=== PATIENT | female | born 1980 | race Caucasian/White ===

== ENCOUNTER 2020-11-28 11:24 | Outpatient (CLI) | payer BC, MEDICAID, SELFPAY ==
--- NOTE | 2020-11-28 11:30 | MM_ITS ---
WS: [id number] SCREENING DIGITAL MAMMOGRAM WITH CAD HISTORY: SCREENING COMPARISON: None available. Bilateral CC and MLO views submitted. Computer aided detection analyzed. Breast composition: There are scattered areas of fibroglandular density. Seen along the RIGHT inframa mmary fold area of increased density which is probably superimposed soft tissues. This needs to be fu rther evaluated. Otherwise scattered benign calcifications. MM/[place] [id number] IMPRESSION: BI-RADS: 0-Incomplete: Need additional imaging evaluation FOLLOW UP: Need Additional Imaging RIGHT breast: Spot compression views (MLO). True ML. Ultrasound to follow if ab normality persists.
--- NOTE | 2020-11-28 12:42 | US_ITS ---
WS: [id number] RIGHT UPPER QUADRANT ULTRASOUND HISTORY: FATTY LIVER COMPARISON: None available. Liver: 19.8 cm in length. Moderate enlargement of the liver. No mass or bile duct dilatation. Mild ch anges of hepatic steatosis. Gallbladder: Normally distended gallbladder with no stones or wall thickening. CBD: 0.3 cm Pancreas: Poorly visualized. Right kidney: 12.4 cm in length. Normal size kidney. Minimal splitting of the RIGHT renal pelvis. May be due to small parapelvic cyst or pelviectasis. No calyceal dilatation. Aorta and IVC: Unremarkable abdominal aorta and IVC. No ascites. US/US abdomen limited [id number] IMPRESSION: 1. Mild hepatic steatosis and moderate hepatomegaly. 2. Normal gallbladder. 3. Minimal fluid in the RIGHT renal pelvis. Mild pelviectasis versus parapelvi c.
== END 2020-11-28 11:25 | disposition home or self-care (01) ==
LOC: RADSHAW 11:26
PROVIDERS: PCP Nurse Practitioner Family; Visit Provider Nurse Practitioner Family
DX: Z12.31 Encounter for screening mammogram for malignant neoplasm of breast (principal); K76.0 Fatty (change of) liver, not elsewhere classified
CPT/HCPCS: 76705; 77067

== ENCOUNTER 2021-01-13 07:28 | Outpatient (CLI) | payer BC, MEDICAID, SELFPAY ==
--- NOTE | 2021-01-13 07:33 | US_ITS ---
WS: [id number] Right breast ultrasound, 01/13/2021 Clinical Data: ABNORMAL MAMMOGRAM RT BREAST Comparison: Right breast mammogram, 01/13/2021 Findings: At the 6:00 position and 7:00 position in the right breast which would correspond to the inframammary fold there are no abnormalities. Only normal breast tissue seen. However 3 cm from the areola at the 9:00 position there is a probable fibroadenoma measuring 0.58 x 1.33 x 1.64 cm. It has a smooth bord er with fat and a mixed echotexture. US/US breast RT limited* [id number] Impression: 1. Negative for abnormality at the 6 or 7:00 position of the right breast which would correspond to the infra mammary fold. 2. Incidental fibroadenoma in the 9:00 position. BIRADS: 2-Benign FOLLOW UP: 1 Year Follow-up
--- NOTE | 2021-01-13 07:33 | MM_ITS ---
WS: [id number] Right breast diagnostic digital mammogram, 01/13/2021 Clinical Data: ABNORMAL MAMMOGRAM RT BREAST Comparison: 11/28/2020 Findings: The density in the inframammary fold is not present on the current examination. The remainder of the breasts shows no abnormalities. The breast parenchymal pattern shows fibroglandular tissue. No spicul ated masses or clustered calcifications are seen. MM/[place] [id number] Impression: 1. Negative for abnormality in the inferior aspect of the right breast. 2. Right breast ultrasound. BIRADS: 2-Benign FOLLOW UP: Need Additional Imaging The CAD metal checker was used.
== END 2021-01-13 07:29 | disposition home or self-care (01) ==
LOC: RADSHAW 07:31
PROVIDERS: PCP Nurse Practitioner Family; Visit Provider Nurse Practitioner Family
DX: R92.8 Other abnormal and inconclusive findings on diagnostic imaging of breast (principal)
CPT/HCPCS: 76642; 77065

== ENCOUNTER → 2021-04-10 13:35 | Outpatient (BNVA) | payer BC, MEDICAID, SELFPAY | PROVIDERS: PCP Nurse Practitioner Family; Visit Provider Internal Medicine | DX: E13.9 Other specified diabetes mellitus without complications (principal); E78.2 Mixed hyperlipidemia; E66.9 Obesity, unspecified; Z98.84 Bariatric surgery status; Z79.4 Long term (current) use of insulin; Z79.84 Long term (current) use of oral hypoglycemic drugs; Z68.36 Body mass index [BMI] 36.0-36.9, adult | CPT/HCPCS: 99204 ==

== ENCOUNTER 2021-04-17 10:32 | Outpatient (CLI) | payer BC, MEDICAID, SELFPAY ==
[2021-04-17 12:12] LABS: Estmated Average Glucose 186; Hemoglobin A1C 8.1 % (4.0-6.0)
[2021-04-17 12:16] LABS: Alanine Aminotransferase 19 U/L (0-33); Albumin Level 4.2 g/dL (3.5-5.2); Alkaline Phosphatase 87 IU/L (35-105); Blood Urea Nitrogen 11 mg/dL (6-20); Calcium 9.2 mg/dL (8.5-10.5); Carbon Dioxide 23 mmol/L (22-29); Chloride 101 mmol/L (98-107); Chol HDL Ratio 4.98 mg/dL (0.0-4.40); Cholesterol 209 mg/dL (0-200); Globulin 3.4 g/dL (1.3-4.6); Glucose 116 mg/dL (65-115); HDL Cholesterol 42 mg/dL (60-100); LDL Cholesterol Calculated 126 mg/dL (50-129); Osmolality Calculated 280 mOsm/kg (285-295); Sodium 135 mmol/L (136-145); Total Bilirubin 0.4 mg/dL (0.15-1.2); Total Protein 7.6 g/dL (6.6-8.7); Triglycerides 204 mg/dL (0-150)
[2021-04-17 12:19] LABS: Anion Gap 15.3 (5-19); Aspartate Amino Transferase 22 U/L (0-32); Potassium 4.3 mmol/L (3.5-5.1)
== END 2021-04-17 10:33 | disposition home or self-care (01) ==
PROVIDERS: Internal Medicine; PCP Nurse Practitioner Family; Visit Provider Nurse Practitioner Family
DX: E13.9 Other specified diabetes mellitus without complications (principal); E78.2 Mixed hyperlipidemia
CPT/HCPCS: 80053; 80061; 83036; 83519; 83525; 84681; 86337

== ENCOUNTER → 2021-04-24 14:15 | Outpatient (BNVA) | payer BC, MEDICAID, SELFPAY | PROVIDERS: PCP Nurse Practitioner Family; Visit Provider Internal Medicine | DX: E78.2 Mixed hyperlipidemia (principal); E10.65 Type 1 diabetes mellitus with hyperglycemia; T38.3X5A Adverse effect of insulin and oral hypoglycemic [antidiabetic] drugs, initial encounter; E66.9 Obesity, unspecified; Z98.84 Bariatric surgery status; Z79.4 Long term (current) use of insulin; Z79.84 Long term (current) use of oral hypoglycemic drugs; Z68.36 Body mass index [BMI] 36.0-36.9, adult | CPT/HCPCS: 99214 ==

== ENCOUNTER → 2021-07-11 10:51 | Outpatient (BNVA) | payer BC, MEDICAID, SELFPAY | PROVIDERS: PCP Nurse Practitioner Family; Visit Provider Internal Medicine | DX: E10.65 Type 1 diabetes mellitus with hyperglycemia (principal); E78.2 Mixed hyperlipidemia; E16.0 Drug-induced hypoglycemia without coma; T38.3X5A Adverse effect of insulin and oral hypoglycemic [antidiabetic] drugs, initial encounter; L65.9 Nonscarring hair loss, unspecified; L63.9 Alopecia areata, unspecified; E66.9 Obesity, unspecified; Z98.84 Bariatric surgery status; Z68.37 Body mass index [BMI] 37.0-37.9, adult; Z79.4 Long term (current) use of insulin | CPT/HCPCS: 99214 ==

== ENCOUNTER → 2021-08-09 09:35 | Outpatient (BNVA) | payer BC, MEDICAID, SELFPAY | PROVIDERS: PCP Nurse Practitioner Family; Visit Provider Anesthesiology Pain Medicine | DX: M19.011 Primary osteoarthritis, right shoulder (principal); M54.12 Radiculopathy, cervical region; M54.81 Occipital neuralgia; M79.601 Pain in right arm; M79.602 Pain in left arm | CPT/HCPCS: 72050; 73030; 99205 ==

== ENCOUNTER 2021-10-04 07:58 | Outpatient (CLI) | payer BC, MEDICAID, SELFPAY ==
--- NOTE | 2021-10-04 08:00 | MR_ITS ---
WS: [id number] MRI CERVICAL SPINE NONCONTRAST HISTORY: Chronic neck and RIGHT shoulder pain. Increasing over the last several months. COMPARISON: None available. Technique: Multiplanar, multisequence noncontrast imaging of the cervical spine. Normal posterior alignment. No fracture or marrow edema. Disc spaces are mildly narrowed. No fracture or marrow edema. Diffusely the central cervical canal is small. Craniocervical junction, C1 and C2 relationship, odontoid process and soft tissues are normal. C2-C3: Mild endplate hypertrophic osteophytosis. Very slight encroachment into the proximal foramina. No high-grade stenosis. C3-C4: Mild disc bulging with a central disc protrusion. Effacement of ventral CSF but no displacemen t of the cord. C4-C5: Mild osteophytic ridging and shallow central disc protrusion. Very mild foraminal encroachment into the foramina. No high-grade stenosis. C5-C6: Mild osteophytic ridging. Small central disc protrusion and mild facet arthritis. Effacement o f ventral CSF. Mild central stenosis. C6-C7: Mild annular disc bulging with a central small disc protrusion. Disc protrusion contacts the v entral cervical cord. Moderate central stenosis due to disc and osteophyte disease. Mild foraminal na rrowing. Mild facet joint arthritis. C7-T1: Normal. T1-T2: Central disc protrusion and osteophytosis. Mild disc encroachment upon the ventral thoracic co rd. Paraspinal soft tissue are normal. MR/MR cervical spin wo con* [id number] IMPRESSION: 1. 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 2. Small focal central disc protrusions and osteophytosis at C3-4, C4-5 and C5 -6. Only mild cervical stenosis. 3. Moderate central stenosis at C6-7 due to osteophyte disease and a small carlos manuel tral disc protrusion which contacts the cord. 4. Small central disc protrusion at T1-T2 contacts the ventral thoracic cord.
== END 2021-10-04 07:59 | disposition home or self-care (01) ==
PROVIDERS: PCP Nurse Practitioner Family; Visit Provider Anesthesiology Pain Medicine
DX: M54.12 Radiculopathy, cervical region (principal); M50.21 Other cervical disc displacement, high cervical region; M51.24 Other intervertebral disc displacement, thoracic region; M48.02 Spinal stenosis, cervical region; M25.78 Osteophyte, vertebrae
CPT/HCPCS: 72141

== ENCOUNTER → 2021-10-05 10:20 | Outpatient (BNVA) | payer BC, MEDICAID, SELFPAY | PROVIDERS: PCP Nurse Practitioner Family; Visit Provider Anesthesiology Pain Medicine | DX: M54.12 Radiculopathy, cervical region (principal); M54.81 Occipital neuralgia; M77.10 Lateral epicondylitis, unspecified elbow; M19.011 Primary osteoarthritis, right shoulder | CPT/HCPCS: 99214 ==

== ENCOUNTER → 2021-10-09 09:12 | Outpatient (BNVA) | payer BC, MEDICAID, SELFPAY | PROVIDERS: PCP Nurse Practitioner Family; Visit Provider Internal Medicine | DX: E10.65 Type 1 diabetes mellitus with hyperglycemia (principal); E10.649 Type 1 diabetes mellitus with hypoglycemia without coma; E78.2 Mixed hyperlipidemia; Z98.84 Bariatric surgery status; Z68.37 Body mass index [BMI] 37.0-37.9, adult; E66.9 Obesity, unspecified; E16.0 Drug-induced hypoglycemia without coma; T38.3X5A Adverse effect of insulin and oral hypoglycemic [antidiabetic] drugs, initial encounter; Z79.4 Long term (current) use of insulin; Z79.84 Long term (current) use of oral hypoglycemic drugs | CPT/HCPCS: 99214 ==

== ENCOUNTER 2021-11-24 12:16 | Outpatient (CLI) | payer BC, MEDICAID, SELFPAY ==
[2021-11-24 13:21] LABS: Basophils # 0.1 10^3/uL (0.0-0.1); Basophils % 0.8 %; Eosinophils # 0.3 10^3/uL (0.0-0.8); Eosinophils % 3.8 %; Hematocrit 38.1 % (37.0-47.0); Hemoglobin 12.8 g/dL (11.5-15.3); Lymphocytes # 1.9 10^3/uL (0.8-4.8); Lymphocytes % 28.6 %; Mean Corpuscular HGB Conc 33.6 g/dL (30.0-36.0); Mean Corpuscular Hemoglobin 30.5 pg (28.0-34.0); Mean Corpuscular Volume 90.9 fl (81-99); Mean Platelet Volume 9.4 fL (7.4-10.4); Monocytes # 0.3 10^3/uL (0.2-0.9); Monocytes % 4.3 %; Neutrophils # 4.07 10^3/uL (1.8-7.7); Neutrophils % 62.2 %; Nucleated Red Blood Cells % 0 %; Platelet Count 326 10^3/cmm (130-400); Red Blood Count 4.19 10^6/uL (4.1-5.3); Red Cell Distribution Width 12.5 % (12.1-15.1); White Blood Count 6.5 10^3/uL (4.0-10.0)
[2021-11-24 13:49] LABS: Ferritin 13 ng/mL (15-150); Iron 85 ug/dL (37-145); Percent Saturation 20.7 % (20-50); Total Iron Binding Capacity 410 mcg/dl; Unsaturated Iron Binding 325 ug/dL (112-347)
[2021-11-24 14:04] LABS: 25 Hydroxy Vitamin D 37 ng/mL (30-100)
[2021-11-24 14:14] LABS: Folate Level > 20.0 ng/mL (4.8-37.3)
[2021-11-24 14:21] LABS: Vitamin B12 > 2000 pg/mL (232-1245)
[2021-11-27 16:07] LABS: Zinc Level, Serum or Plasma 74 mcg/dL (60-130)
== END 2021-11-24 12:17 | disposition home or self-care (01) ==
LOC: LAB 12:23
PROVIDERS: PCP Nurse Practitioner Family; Referring Provider Internal Medicine; Visit Provider Nurse Practitioner Family
DX: L65.9 Nonscarring hair loss, unspecified (principal); R53.83 Other fatigue
CPT/HCPCS: 82306; 82607; 82728; 82746; 83540; 83550; 84630; 85025

== ENCOUNTER → 2021-12-05 09:38 | Outpatient (BNVA) | payer BC, MEDICAID, SELFPAY | PROVIDERS: PCP Nurse Practitioner Family; Visit Provider Orthopaedic Surgery | DX: M77.10 Lateral epicondylitis, unspecified elbow (principal) | CPT/HCPCS: 73080 ==

== ENCOUNTER 2022-01-09 14:39 | Emergency (ER) | payer BC, MEDICAID, SELFPAY ==
[2022-01-09 14:46] VITALS: BP 164/90; PULSE 77; RESP 24; TEMP 36.6; O2SAT 98
--- NOTE | 2022-01-09 15:07 | ED_ITS ---
HPI - Allergic Reaction General: Chief complaint: Allergic Reaction Stated complaint: Reaction to meds Time Seen by Provider: 01/09/22 15:03 Source: patient Mode of arrival: ambulatory History of Present Illness: HPI narrative: 41-year-old female comes into the emergency room after taking someone else's sumatriptan believe she probably took some between 25 or 50 mg UroFlush really lightheadedness dizziness tingling in her arms and feet after that with some nausea no difficulty breathing. She never had any rash had not previously taken any triptan's before. She usually just takes Tylenol or Motrin for migraines. She is diabetic. Symptoms have mostly resolved at this point she still does have a headache is exacerbated by any movement. MD complaint: other (Medication side effect) Onset (ago): minute(s) Associated symptoms: Reports dizziness and nausea; Deny abdominal pain, difficulty breathing, dysphagia, facial swelling, hoarseness, itching, lip swelling, rash or tongue swelling Treatment prior to arrival: none Review of Systems Const: Denies: fever(s), chills, body aches, change in appetite, fatigue or malaise ENMT: Denies: throat pain, hoarseness or swelling of lips/tongue Card: Denies: chest pain, palpitations, irregular heart rhythm, edema, dyspnea on exertion or orthopnea Resp: Denies: dyspnea, productive cough or non-productive cough GI: Reports: nausea; Denies: abdominal pain or dysphagia : Denies: flank pain, difficulty voiding, dysuria, urinary frequency or urinary urgency Skin/Breast: Denies: rash or pruritus Neuro: Reports: headache(s) and dizziness All/Imm: Denies: tongue swelling or facial swelling PFSH ED PFSH: Medical History Carpal tunnel syndrome on both sides delivery delivered Surgical History Gastric bypass status for obesity History of partial hysterectomy Family History Father Diabetes Stroke Multiple myeloma Kidney failure Hepatic sclerosis Mother Hypertension COPD (chronic obstructive pulmonary disease) Heart disease Social History Smoking and tobacco status: never smoked Second hand smoke exposure: No Smoking risk assessment/counseling performed?: Yes Alcohol intake: current Alcohol intake frequency: holidays/special occasions only Alcohol type: beer Desire information about alcohol rehabilitation?: No Counseling given: No Desire information about substance/drug rehabilitation?: No Counseling given: No Adopted: No Caregiver/support person: No Lives independently: Yes Household members: significant other and children Housing: House Marital status: Single Number of children: 3 Highest education level completed: Associate Degree: Academic Program service: No Current occupational status: unemployed Pets and animals: Yes History of recent travel: No Physical Exam Const: COMMON NORMALS: no acute distress GENERAL APPEARANCE: cooperative and comfortable ORIENTATION/CONSCIOUSNESS: Yes awake, Yes oriented to person, Yes oriented to place and Yes oriented to time HENMT: COMMON NORMALS: normocephalic, atraumatic, hearing grossly normal bilaterally, external ears normal, EAC's normal, TM's normal bilaterally, Normal nasal mucous membranes and turbinates present, moist oral mucous membranes and oropharynx normal HEAD & SCALP: normocephalic and atraumatic NOSE: Normal nasal mucous membranes and turbinates present EXTERNAL EAR: Yes external ears normal EXTERNAL AUDITORY CANAL: EAC's normal TYMPANIC MEMBRANE: TM's normal bilaterally Resp: COMMON NORMALS: normal respiratory effort, No retractions, No use of accessory muscles and clear to auscultation bilaterally AUSCULTATION: clear to auscultation bilaterally Cardio: COMMON NORMALS: regular rate, regular rhythm and No murmurs present (Cardio) RATE: regular rate RHYTHM: regular rhythm GI: COMMON NORMALS: Soft to palpation and No hepatosplenomegaly present AUSCULTATION: Yes normoactive bowel sounds PALPATION: Yes Soft to palpation, No Tenderness to palpation present (GI), No Guarding due to palpation present (GI) and Yes No hepatosplenomegaly present Extremity: COMMON NORMALS: normal to inspection, capillary refill normal, no clubbing, cyanosis or edema, no calf tenderness and no pedal edema Neuro: SENSORIUM/ORIENTATION: Yes oriented to person, Yes oriented to place and Yes oriented to time Skin: COMMON NORMALS: no rashes or lesions noted GENERAL SKIN EXAM: no rashes or lesions noted Course Vital Signs: Vital signs: Vital Signs Temperature 97.8 F 01/09/22 14:46 Pulse Rate 77 01/09/22 14:46 Respiratory Rate 24 H 01/09/22 14:46 Blood Pressure 164/90 01/09/22 14:46 Pulse Oximetry 98 01/09/22 14:46 MDM - Allergic Reaction Medical Decision Making Patient symptoms side effects of the sumatriptan. Headache improved after treatment. Discussed that the patient does think that she experienced her typical side effects of the sumatriptan would not consider allergic we will discharge patient home follow-up with primary care. Medical Records I reviewed the patient's medical records. Lab Data I reviewed the patient's lab results. Discharge Plan Discharge Patient Disposition: Home Clinical Impression: Migraine, Adverse reaction to drug Condition: Stable Prescriptions: No Action (DME) OneTouch Ultra Test Strip See Rx Instructions .Route Rx Instructions: Test BS 4 times a day. (DME) pen needle, diabetic [Easy Comfort Pen [place]] 31 gauge x 5/16 needle See Rx Instructions .Route Rx Instructions: As directed (DME) Dexcom G6 Coal Unloader Misc See Rx Instructions .Route Qty: 1 0RF Rx Instructions: Check BS 4 times a day. minoxidil 5 % foam 1 ea topical BID Qty: 60 3RF Rx Instructions: Use topically twice daily for 4 months if no improvement may discontinue at that time. clobetasol 0.05 % solution 1 applic topical BID 60 Days Qty: 50 0RF Rx Instructions: Apply to cotton ball then directly to areas of hair loss. multivitamin Tablet 1 tab PO DAILY acetaminophen [Tylenol Extra Strength] 500 mg tablet 500 mg PO Q6H PRN diphenhydramine-acetaminophen [Tylenol PM Extra Strength] 25-500 mg tablet 1 tab PO Q6H PRN lidocaine-epinephrine (PF) 2 %-1:200,000 solution 0.5 ml SUBCUT ONCE Qty: 20 0RF Kenalog 10 mg/mL suspension 0.5 mg intradermal ONCE Qty: 5 0RF metformin 1,000 mg tablet 1,000 mg PO BID Qty: 180 3RF Rx Instructions: Take one tablet by mouth twice a day. insulin aspart U-100 [Novolog Flexpen U-100 Insulin] 100 unit/mL (3 mL) insulin pen 30 unit SUBCUT QID Qty: 105 3RF Lantus Solostar U-100 Insulin 100 unit/mL (3 mL) insulin pen 30 unit SUBCUT BID Qty: 60 3RF Rx Instructions: Inject 30 units subcut twice a day. diazepam 10 mg tablet 10 mg PO ONCE PRN (Reason: anxiety) Qty: 1 0RF Rx Instructions: Take 1 hour prior to procedure. (DME) Dexcom G6 Sensor Device See Rx Instructions .Route Qty: 3 3RF Rx Instructions: Change every 10 days. (DME) Dexcom G6 Transmitter Device See Rx Instructions .Route Qty: 1 3RF Rx Instructions: Change every 90 days. duloxetine 60 mg capsule,delayed release(DR/EC) 60 mg PO DAILY 90 Days Qty: 90 0RF Discharge Orders: Discharge ED (Routine); Ordered 01/09/22 Ordered By: Yemi Nascimento Patient Instructions: Opioid Safety, Pain Management Activity Restrictions/Additional Instructions: Follow-up with your primary care doctor for evaluation for medications for headache relief. Coding Level of Care Code ED Chapter Relations Administrator for Oliva Ochoa
[2022-01-09] MEDS: ketorolac 30 mg/mL INJ IVP (15:40)
[2022-01-09] MEDS: sodium chloride 0.9% 1,000 ML 999 ML IV (15:43)
[2022-01-09] MEDS: diphenhydrAMINE 50 mg/mL SDV 1mL IVP (15:47)
[2022-01-09] MEDS: promethazine 25 mg/mL SDV 1 mL IM (15:58)
== END 2022-01-09 17:20 | disposition home or self-care (01) ==
PROVIDERS: Emergency Provider Family Medicine
DX: G43.909 Migraine, unspecified, not intractable, without status migrainosus (principal); T39.8X5A Adverse effect of other nonopioid analgesics and antipyretics, not elsewhere classified, initial encounter; Z79.84 Long term (current) use of oral hypoglycemic drugs; Z79.4 Long term (current) use of insulin
CPT/HCPCS: 96361; 96372; 96374; 96375; 99284; J1200; J1885; J2550; J7030

== ENCOUNTER 2022-02-20 10:30 | Outpatient (CLI) | payer BC, MEDICAID, SELFPAY ==
[2022-02-20 12:12] LABS: Estmated Average Glucose 163; Hemoglobin A1C 7.3 % (4.0-6.0)
[2022-02-20 12:22] LABS: Alanine Aminotransferase 18 U/L (0-33); Albumin Level 3.8 g/dL (3.5-5.2); Alkaline Phosphatase 79 U/L (35-105); Anion Gap 13.1 (5-19); Aspartate Amino Transferase 18 U/L (0-32); Blood Urea Nitrogen 10 mg/dL (6-20); Carbon Dioxide 27 mmol/L (22-29); Chloride 100 mmol/L (98-107); Chol HDL Ratio 4.41 mg/dL (0.0-4.40); Cholesterol 194 mg/dL (0-200); Globulin 3.5 g/dL (1.3-4.6); Glomerular Filtration Rate 134.7 mL/min (90-130); Glucose 115 mg/dL (65-115); HDL Cholesterol 44 mg/dL (60-100); LDL Cholesterol Calculated 110 mg/dL (50-129); Osmolality Calculated 282 mOsm/kg (285-295); Potassium 4.1 mmol/L (3.5-5.1); Sodium 136 mmol/L (136-145); Total Bilirubin 0.3 mg/dL (0.15-1.2); Total Protein 7.3 g/dL (6.6-8.7); Triglycerides 200 mg/dL (0-150)
== END 2022-02-20 10:31 | disposition home or self-care (01) ==
LOC: LAB 10:33
PROVIDERS: PCP Family Medicine; Visit Provider Internal Medicine
DX: E10.65 Type 1 diabetes mellitus with hyperglycemia (principal)
CPT/HCPCS: 36415; 80053; 80061; 83036

== ENCOUNTER → 2022-03-12 14:32 | Outpatient (BNVA) | payer BC, MEDICAID, SELFPAY | PROVIDERS: PCP Family Medicine; Visit Provider Family Medicine | DX: D50.9 Iron deficiency anemia, unspecified (principal); N39.3 Stress incontinence (female) (male) | CPT/HCPCS: 81000; 82728; 83550 ==

== ENCOUNTER 2022-03-30 11:59 | Outpatient (CLI) | payer BC, MEDICAID, SELFPAY ==
--- NOTE | 2022-03-30 16:20 | MM_ITS ---
WS: [id number] VIEWS: MLO and CC views both breasts. 3D digital tomosynthesis is also included in this exam. Comparison made with prior exam of 11/28/2020. Findings: 12 mm ovoid nodule noted in the lateral right breast is stable in appearance since previous study. No new suspicious lesion or tumor calcification noted in either breast. Scattered fibroglandular densi ties MM/[place] [id number] Impression: BI-RADS: 2-Benign FOLLOW-UP: 1 Year Follow-up This mammogram was also analyzed by the Computer Aided Detection System R2 Imag e Gelatin Powder Mixer.
== END 2022-03-30 12:00 | disposition home or self-care (01) ==
LOC: RAD 12:00
PROVIDERS: PCP Family Medicine; Visit Provider Family Medicine
DX: Z12.31 Encounter for screening mammogram for malignant neoplasm of breast (principal)
CPT/HCPCS: 77063; 77067

== ENCOUNTER → 2022-04-16 11:58 | Day surgery (SDC) | payer BC, MEDICAID, SELFPAY ==
[2022-04-16] MEDS: iron sucrose 200 MG in sodium chloride 0.9% (100 ml) 100 ML 220 MG IV (12:40)
[2022-04-16 12:45] VITALS: BP 137/74; PULSE 80; RESP 18; TEMP 36.1; O2SAT 99
--- NOTE | 2022-04-16 13:10 | PC.NURSE ---
Pt to GI infusions for Venofer infusion. Tolerated without difficulty. States she has slight headache but otherwise feels fine.
== END ==
LOC: GILAB 11:59
PROVIDERS: PCP Family Medicine; Visit Provider Family Medicine
DX: D50.9 Iron deficiency anemia, unspecified (principal)
CPT/HCPCS: 96365; J1756

== ENCOUNTER → 2022-04-23 12:01 | Day surgery (SDC) | payer BC, MEDICAID, SELFPAY ==
[2022-04-23] MEDS: iron sucrose 200 MG in sodium chloride 0.9% (100 ml) 100 ML 220 MG IV (12:16)
[2022-04-23 12:20] VITALS: BP 145/86; PULSE 82; RESP 18; TEMP 36.3; O2SAT 98
== END ==
LOC: GILAB 12:03
PROVIDERS: PCP Family Medicine; Visit Provider Family Medicine
DX: D50.9 Iron deficiency anemia, unspecified (principal)
CPT/HCPCS: 96365; J1756

== ENCOUNTER → 2022-04-30 12:05 | Day surgery (SDC) | payer BC, MEDICAID, SELFPAY ==
[2022-04-30] MEDS: iron sucrose 200 MG in sodium chloride 0.9% (100 ml) 100 ML 220 MG IV (12:21)
[2022-04-30 12:23] VITALS: BP 145/88; PULSE 76; RESP 18; TEMP 36; O2SAT 99
== END ==
LOC: GILAB 12:08
PROVIDERS: PCP Family Medicine; Visit Provider Family Medicine
DX: D50.9 Iron deficiency anemia, unspecified (principal)
CPT/HCPCS: 96365; J1756

== ENCOUNTER → 2022-05-07 12:35 | Day surgery (SDC) | payer BC, MEDICAID, SELFPAY ==
[2022-05-07] MEDS: iron sucrose 200 MG in sodium chloride 0.9% (100 ml) 100 ML 220 MG IV (12:40)
[2022-05-07 12:49] VITALS: BP 171/97; PULSE 91; RESP 18; TEMP 35.9; O2SAT 98
== END ==
PROVIDERS: PCP Family Medicine; Visit Provider Family Medicine
DX: D50.9 Iron deficiency anemia, unspecified (principal)
CPT/HCPCS: 96365; J1756

== ENCOUNTER → 2022-05-14 11:57 | Day surgery (SDC) | payer BC, MEDICAID, SELFPAY ==
[2022-05-14] MEDS: iron sucrose 200 MG in sodium chloride 0.9% (100 ml) 100 ML 220 MG IV (12:26)
[2022-05-14 12:29] VITALS: BP 123/79; PULSE 84; RESP 18; TEMP 35.9; O2SAT 99
== END ==
PROVIDERS: PCP Family Medicine; Visit Provider Family Medicine
DX: D50.9 Iron deficiency anemia, unspecified (principal)
CPT/HCPCS: 96365; J1756

== ENCOUNTER → 2022-06-05 11:17 | Outpatient (BNVA) | payer BC, MEDICAID, SELFPAY | PROVIDERS: PCP Family Medicine; Visit Provider Family Medicine | DX: R10.9 Unspecified abdominal pain (principal); R10.30 Lower abdominal pain, unspecified | CPT/HCPCS: 86003 ==

== ENCOUNTER → 2022-07-18 10:42 | Outpatient (BNVA) | payer BC, MEDICAID, SELFPAY | PROVIDERS: PCP Family Medicine; Visit Provider Podiatrist Foot & Ankle Surgery | DX: E10.65 Type 1 diabetes mellitus with hyperglycemia (principal); G62.9 Polyneuropathy, unspecified; M77.41 Metatarsalgia, right foot; M77.42 Metatarsalgia, left foot; M21.6X1 Other acquired deformities of right foot; M21.6X2 Other acquired deformities of left foot; Z79.4 Long term (current) use of insulin; Z79.84 Long term (current) use of oral hypoglycemic drugs | CPT/HCPCS: 73630 ==

== ENCOUNTER 2022-09-11 10:20 | Outpatient (CLI) | payer BC, MEDICAID, SELFPAY ==
[2022-09-11 11:18] LABS: Basophils % 0.8 %; Eosinophils # 0.1 10^3/uL (0.0-0.8); Eosinophils % 2.5 %; Hematocrit 40.7 % (37.0-47.0); Hemoglobin 13.9 g/dL (11.5-15.3); Lymphocytes # 1.6 10^3/uL (0.8-4.8); Lymphocytes % 31.8 %; Mean Corpuscular HGB Conc 34.2 g/dL (30.0-36.0); Mean Corpuscular Volume 93.6 fl (81-99); Mean Platelet Volume 9.2 fL (7.4-10.4); Monocytes # 0.3 10^3/uL (0.2-0.9); Monocytes % 5.7 %; Neutrophils % 58.8 %; Nucleated Red Blood Cells % 0 %; Platelet Count 305 10^3/cmm (130-400); Red Blood Count 4.35 10^6/uL (4.1-5.3); Red Cell Distribution Width 11.5 % (12.1-15.1); White Blood Count 5.1 10^3/uL (4.0-10.0)
[2022-09-11 11:41] LABS: Estmated Average Glucose 194; Hemoglobin A1C 8.4 % (4.0-6.0)
[2022-09-11 11:43] LABS: Calcium 8.5 mg/dL (8.5-10.5)
[2022-09-11 11:51] LABS: Parathyroid Hormone 51.7 pg/mL (15-65)
[2022-09-11 12:03] LABS: 25 Hydroxy Vitamin D 28 ng/mL (30-100); Alanine Aminotransferase 23 U/L (0-33); Alkaline Phosphatase 82 U/L (35-105); Anion Gap 11.9 (5-19); Aspartate Amino Transferase 16 U/L (0-32); Blood Urea Nitrogen 9 mg/dL (6-20); Calcium 8.4 mg/dL (8.5-10.5); Carbon Dioxide 25 mmol/L (22-29); Chloride 101 mmol/L (98-107); Cholesterol 200 mg/dL (0-200); Ferritin 75 ng/mL (15-150); Globulin 3.2 g/dL (1.3-4.6); Glucose 184 mg/dL (65-115); HDL Cholesterol 40 mg/dL (60-100); Iron 94 ug/dL (37-145); LDL Cholesterol Calculated 134 mg/dL (50-129); LDL HDL Ratio 3.35 RATIO (0.00-3.22); Osmolality Calculated 281 mOsm/kg (285-295); Percent Saturation 31.6 % (20-50); Potassium 3.9 mmol/L (3.5-5.1); Sodium 134 mmol/L (136-145); Thyroid Stimulating Hormone 1.97 uIU/mL (0.27-4.20); Total Bilirubin 0.5 mg/dL (0.15-1.2); Total Iron Binding Capacity 297 mcg/dl; Total Protein 7.2 g/dL (6.6-8.7); Triglycerides 132 mg/dL (0-150); Unsaturated Iron Binding 203 ug/dL (112-347); Vitamin B12 847 pg/mL (232-1245)
[2022-09-17 13:48] LABS: Zinc Level, Serum or Plasma 76 mcg/dL (60-130)
== END 2022-09-11 10:21 | disposition home or self-care (01) ==
PROVIDERS: PCP Family Medicine; Visit Provider Family Medicine
DX: D50.8 Other iron deficiency anemias (principal); D50.9 Iron deficiency anemia, unspecified; E53.8 Deficiency of other specified B group vitamins; Z98.84 Bariatric surgery status
CPT/HCPCS: 36415; 80053; 80061; 82306; 82310; 82607; 82728; 82746; 83036; 83540; 83550; 83735; 83970; 84443; 84630; 85025

== ENCOUNTER → 2023-06-03 15:43 | Outpatient (BNVA) | payer BC, MEDICAID, SELFPAY | PROVIDERS: PCP Family Medicine; Visit Provider Anesthesiology Pain Medicine | DX: M19.012 Primary osteoarthritis, left shoulder (principal); M25.512 Pain in left shoulder | CPT/HCPCS: 73020 ==

== ENCOUNTER 2023-06-26 21:05 | Emergency (ER) | payer BC, MEDICAID, SELFPAY ==
[2023-06-26 21:11] VITALS: BP 139/89; PULSE 82; RESP 16; TEMP 36.4; O2SAT 100
--- NOTE | 2023-06-26 21:30 | W.ED.ANIMALB ---
HPI - Animal Bite General: Chief Complaint: Animal Bite Stated Complaint: cat bite Time Seen by Provider: 06/26/23 21:30 History of Present Illness: 43-year-old female comes in today with a animal bite to her right distal forearm. Patient reports some pain and discomfort at the bite. Patient also reports a bite to her left forearm that is not as tender. Patient appears nontoxic. Patient appears no acute distress. Patient has a history of bypass surgery. Patient has a history of obesity, high cholesterol and diabetes. Site appears without any redness or significant swelling. No palpable fluctuance is noted at the area of tenderness. Review of Systems General: Reports: 10 or more systems reviewed and unremarkable except in HPI and below Musc: Reports: joint pain (Right wrist) PFSH ED PFSH: Medical History RANDALL (nonalcoholic steatohepatitis) delivery delivered Carpal tunnel syndrome on both sides Surgical History History of partial hysterectomy Due to fibroids Gastric bypass status for obesity Family History Father Diabetes Stroke Multiple myeloma Kidney failure Hepatic sclerosis Mother Hypertension COPD (chronic obstructive pulmonary disease) Heart disease Social History Smoking and tobacco/nicotine status: never used tobacco/nicotine Second hand smoke exposure: No Alcohol intake: current Alcohol intake frequency: holidays/special occasions only Alcohol type: beer Substance/Drug Use: never Adopted: No Caregiver/support person: No Lives independently: Yes Household members: significant other and children Housing: House Marital status: Single Number of children: 3 Highest education level completed: Associate Degree: Academic Program service: No Current occupational status: unemployed Pets and animals: Yes Physical Exam Const: COMMON NORMALS: alert HENMT: COMMON NORMALS: normocephalic HEAD & SCALP: normocephalic Neck/C-Spine: COMMON NORMALS: full ROM Resp: COMMON NORMALS: normal respiratory effort Cardio: COMMON NORMALS: regular rate RATE: regular rate Back/Pelvis: COMMON NORMALS: thoracic and lumbar spine normal to inspection Extremity: COMMON NORMALS: full ROM NARRATIVE EXTREMITY EXAM: Patient has several scratches to both forearms. Patient has some mild erythema to each of the scratches. No obvious puncture wound is noted. No fluctuance or significant swelling is noted. Neuro: SENSORIUM/ORIENTATION: Yes alert Skin: TRAUMA: abrasion (Multiple bilateral forearms) Course Vital Signs: Vital signs: Vital Signs Temperature 97.5 F L 06/26/23 21:11 Pulse Rate 82 06/26/23 21:11 Respiratory Rate 16 06/26/23 21:11 Blood Pressure 139/89 06/26/23 21:11 Pulse Oximetry 100 06/26/23 21:11 Oxygen Delivery Me thod Room Air 06/26/23 21:11 MDM - Animal Bite Medical Decision Making 43-year-old female comes in today for injuries to bilateral forearms. Patient reports that she was playing with her cat and got several scratches and bites to her forearms. On exam patient has several scratches to both arms. Patient's concern is related to the 1 to the right volar wrist area that is tender to touch. No significant swelling is noted of the wound. Wound appears to be more of a scratch than a puncture wound. Differential diagnosis includes foreign body, wound infection, need for prophylaxis antibiotic, need for tetanus. Patient's tetanus was not up-to-date and was updated in the emergency room. Patient was given a gram of Rocephin due to her chronic medical problems. Patient will be kept on Augmentin. Patient was given a dose of Toradol and a hydrocodone tablet for her pain. XR interpretation done by ED provider, pending radiology final review Discharge Plan Discharge Patient Disposition: Home Clinical Impression: Cat bite of forearm Qualifiers: Encounter type: initial encounter Laterality: right Qualified Code(s): S51.851A - Open bite of right forearm, initial encounter Condition: Stable Prescriptions: New amoxicillin-pot clavulanate 875-125 mg tablet 1 tab PO BID Qty: 14 0RF celecoxib 100 mg capsule 100 mg PO BID PRN (Reason: pain) Qty: 20 0RF hydrocodone-acetaminophen 5-325 mg tablet 1 tab PO Q6H PRN (Reason: pain (scale score 7-10)) Qty: 7 0RF No Action multivitamin Tablet 1 tab PO DAILY acetaminophen [Tylenol Extra Strength] 500 mg tablet 500 mg PO Q6H PRN (Reason: Pain) diphenhydramine-acetaminophen [Tylenol PM Extra Strength] 25-500 mg tablet 1 tab PO Q6H PRN (Reason: Pain) (DME) Dexcom G7 Sensor Device See Rx Instructions .ROUTE .MEDSUPPLY Qty: 9 0RF Rx Instructions: Change every 10days insulin aspart U-100 [Novolog FlexPen U-100 Insulin] 100 unit/mL (3 mL) insulin pen 30 unit SUBCUT QID 90 Days Qty: 108 1RF metformin 1,000 mg tablet 1,000 mg PO DAILY 90 Days Qty: 90 0RF minoxidil 5 % foam 1 ea topical BID Qty: 60 3RF Rx Instructions: Use topically twice daily for 4 months if no improvement may discontinue at that time. mupirocin 2 % ointment 1 applic topical BID Qty: 22 0RF duloxetine 60 mg capsule,delayed release(DR/EC) See Rx Instructions .ROUTE .COMPLEX Qty: 90 1RF Dose Instruction: Take 1 capsule by mouth once daily Rx Instructions: Take 1 capsule by mouth once daily Venofer 200 mg iron/10 mL solution 200 mg IV .weekly Qty: 50 0RF Rx Instructions: administer over 30 mins D50.9 - Iron Deficiency anemia (DME) OneTouch Ultra Test Strip See Rx Instructions .Route Qty: 400 0RF Rx Instructions: Test BS 4 times a day. Lantus Solostar U-100 Insulin 100 unit/mL (3 mL) insulin pen See Rx Instructions .ROUTE .COMPLEX Qty: 60 0RF Dose Instruction: INJECT 30 UNITS SUB-Q TWO TIMES A DAY Rx Instructions: INJECT 30 UNITS SUB-Q TWO TIMES A DAY atorvastatin 20 mg tablet See Rx Instructions .ROUTE .COMPLEX Qty: 90 0RF Dose Instruction: Take 1 tablet by mouth once daily Rx Instructions: Take 1 tablet by mouth once daily (DME) pen needle, diabetic [TechLITE Pen Needle] 31 gauge x 5/16 needle See Rx Instructions .ROUTE .COMPLEX Qty: 600 0RF Dose Instruction: USE 1 PEN NEEDLE 6 TIMES EACH DAY Rx Instructions: USE 1 PEN NEEDLE 6 TIMES EACH DAY cholecalciferol (vitamin D3) 1,250 mcg (50,000 unit) capsule See Rx Instructions .ROUTE .COMPLEX Qty: 12 0RF Dose Instruction: Take 1 capsule by mouth once a week Rx Instructions: Take 1 capsule by mouth once a week (DME) Dexcom G7 Cleaning Technician Misc See Rx Instructions .ROUTE .COMPLEX Qty: 1 0RF Dose Instruction: USE DIRECTED Rx Instructions: USE DIRECTED Discharge Orders: Discharge ED (Routine); Ordered 06/26/23 Ordered By: Chad Ann Referrals: Vandana Aguilar DO [Primary Care Provider] - Discharge Diet: Usual diet Discharge Activity: Increase activity as tolerated Patient Instructions: Animal Bite (ED) Activity Restrictions/Additional Instructions: Take antibiotic as directed. Drink plenty of water with medication. Follow-up with primary care in 3 to 5 days for recheck. Return to ED for worsening symptoms. Coding Level of Care Code ED Director Drug for Oliva Ochoa
--- NOTE | 2023-06-26 21:32 | XRR_ITS ---
PROCEDURE INFORMATION: Exam: XR Right Wrist Exam date and time: 06/26/2023 10:17 PM Age: 43 years old Clinical indication: Injury or trauma; Other: Animal bite; Wrist and hand; Right TECHNIQUE: Imaging protocol: Radiologic exam of the right wrist. Views: 3 or more views. COMPARISON: No relevant prior studies available. FINDINGS: Bones/joints: There is no acute fracture or dislocation. If symptoms persist, follow-up imaging in several days may be useful to exclude an occult or subtle fracture. Soft tissues: No visible/definite radiopaque soft tissue foreign body. XR/XR wrist RT min 3V* [id number] IMPRESSION: 1. No acute fracture or dislocation. 2. No visible/definite radiopaque soft tissue foreign body. 3. Other details discussed above.
[2023-06-26] MEDS: tetanus-dipt-pertussis 0.5 mL SDV IM (22:33)
[2023-06-26] MEDS: ketorolac 30 mg/mL INJ IM (22:38)
[2023-06-26] MEDS: cefTRIAXone 1,000 MG in water for injection-sterile 2.1 ML 2.10000000000000009 MG IM (22:39)
[2023-06-26] MEDS: HYDROcodone-acetaminophen 7.5-325 mg Tablet 1 TAB PO (22:49)
[2023-06-26 23:10] VITALS: BP 132/79; PULSE 77; RESP 15; O2SAT 96
== END 2023-06-26 23:12 | disposition home or self-care (01) ==
PROVIDERS: Emergency Provider Nurse Practitioner Family; PCP Family Medicine
DX: S51.851A Open bite of right forearm, initial encounter (principal); W55.01XA Bitten by cat, initial encounter; Z79.4 Long term (current) use of insulin; Z79.84 Long term (current) use of oral hypoglycemic drugs; Z23 Encounter for immunization
CPT/HCPCS: 73110; 90471; 90715; 96372; 99284; J0696; J1885

== ENCOUNTER 2023-07-19 15:59 | Emergency (ER) | payer BC, MEDICAID, SELFPAY ==
[2023-07-19 16:05] VITALS: BP 133/73; PULSE 91; RESP 16; TEMP 36.4; O2SAT 99; BMI 36.3
--- NOTE | 2023-07-19 16:42 | XRR_ITS ---
PROCEDURE INFORMATION: Exam: XR Right Hand Exam date and time: 07/19/2023 4:54 PM Age: 43 years old Clinical indication: Injury or trauma; Other: Cat bite; Hand; Right; Additional info: Cat bite/swelling TECHNIQUE: Imaging protocol: Radiologic exam of the right hand. 3image(s) are provided. Views: 3 or more views. COMPARISON: CR (UP EXM, ) 06/26/2023 10:17 PM FINDINGS: Bones/joints: Osseous alignment is maintained. No interval displaced fracture or dislocation is appreciated.Carpal alignment appears maintained. There is some slight radiocarpal narrowing. There is some mild chronic appearing degenerative changes of the carpal level. Soft tissues: No radiopaque foreign body or diffuse subcutaneous emphysema is appreciated. There is however some overall soft tissue swelling for example including some dorsal predominance on the lateral view. Other findings: No other significant interval changes are appreciated. XR/XR hand RT min 3V* [id number] IMPRESSION: There is soft tissue swelling demonstrated corresponding to the clinical history provided. No interval fracture or dislocation is appreciated.
--- NOTE | 2023-07-19 16:52 | W.ED.ANIMALB ---
Documented by User: TRAN Fierro 07/19/23 17:50 HPI - Animal Bite General: Chief Complaint: Animal Bite Stated Complaint: right hand cat bite Time Seen by Provider: 07/19/23 16:37 Source: patient Mode of arrival: ambulatory Limitations: no limitations History of Present Illness: Patient is a 43-year-old female presenting to the emergency department complaining of cat bite to right hand onset yesterday. Patient notes that the same cat bit her on the same hand a few weeks ago, in which she was seen in the emergency department and prescribed antibiotics. She notes that this healed up well prior to being bitten again yesterday. The cat has been quarantined for the past 6 weeks and recently was fixed, and able to be quarantined for the foreseeable future. She did have her tetanus updated last time she was in the emergency department. She is noting pain over the MCP of the second digit on the right hand, otherwise no reported neurovascular deficits. Has not taken anything for pain at this time. MD complaint: animal bite Onset (ago): day(s) Animal: cat Description of animal: household pet Mechanism: bite Location - Extremities: Right: hand Associated symptoms: Deny chills, fever(s) or headache(s) Related Data: Patient tetanus UTD: Yes Review of Systems General: Reports: 10 or more systems reviewed and unremarkable except in HPI and below Const: Denies: fever(s), chills or fatigue Eyes: Denies: change in vision ENMT: Denies: throat pain, ear or mastoid pain or nasal discharge Card: Denies: chest pain, palpitations, swelling of feet/ankles or lightheadedness Resp: Denies: dyspnea, productive cough or wheezing GI: Denies: abdominal pain, nausea, vomiting, diarrhea or constipation : Denies: flank pain, difficulty voiding, dysuria or urinary frequency Musc: Reports: extremity pain (Right hand); Denies: neck pain, back pain or joint pain Skin/Breast: Reports: new lesions (Cat bite to right hand); Denies: rash Neuro: Denies: headache(s), numbness in extremities or weakness in extremities PFS ED PFSH: Medical History RANDALL (nonalcoholic steatohepatitis) delivery delivered Carpal tunnel syndrome on both sides Surgical History History of partial hysterectomy Due to fibroids Gastric bypass status for obesity Family History Father Diabetes Stroke Multiple myeloma Kidney failure Hepatic sclerosis Mother Hypertension COPD (chronic obstructive pulmonary disease) Heart disease Social History Smoking and tobacco/nicotine status: never used tobacco/nicotine Second hand smoke exposure: No Alcohol intake: current Alcohol intake frequency: holidays/special occasions only Alcohol type: beer Substance/Drug Use: never Adopted: No Caregiver/support person: No Lives independently: Yes Household members: significant other and children Housing: House Marital status: Single Number of children: 3 Highest education level completed: Associate Degree: Academic Program service: No Current occupational status: unemployed Pets and animals: Yes Physical Exam Const: COMMON NORMALS: no acute distress, patient oriented x3 and no limitations GENERAL APPEARANCE: cooperative, comfortable and well developed ORIENTATION/CONSCIOUSNESS: Yes awake, Yes oriented to person, Yes oriented to place and Yes oriented to time HENMT: COMMON NORMALS: normocephalic, atraumatic and hearing grossly normal bilaterally HEAD & SCALP: normocephalic and atraumatic Eye: COMMON NORMALS: Equal, round and reactive pupils present, EOMs intact bilaterally and conjunctivae normal CONJUNCTIVA: Yes conjunctivae normal PUPIL: Yes Equal, round and reactive pupils present Neck/C-Spine: COMMON NORMALS: full ROM, supple and no JVD Resp: COMMON NORMALS: normal respiratory effort, No retractions, No use of accessory muscles and clear to auscultation bilaterally AUSCULTATION: clear to auscultation bilaterally Cardio: COMMON NORMALS: no JVD, regular rate, regular rhythm, No clicks present (Cardio), No murmurs present (Cardio) and No rub (Cardio) RATE: regular rate RHYTHM: regular rhythm Extremity: NARRATIVE EXTREMITY EXAM: Right second MCP joint mildly swollen and erythematous. Tender to the touch. No red streaking noted. Radial pulse intact. No active bleeding or oozing. There is a pinpoint lesion centrally located to the erythema. Neuro: COMMON NORMALS: patient oriented x3, moves all extremities, no focal motor deficits and no sensory deficits noted SENSORIUM/ORIENTATION: Yes oriented to person, Yes oriented to place and Yes oriented to time Psych: COMMON NORMALS: mental status grossly normal and Normal thought process present THOUGHT PROCESS: Normal thought process present Course Vital Signs: Vital signs: Vital Signs Temperature 97.5 F L 07/19/23 16:05 Pulse Rate 91 07/19/23 16:05 Respiratory Rate 16 07/19/23 16:05 Blood Pressure 133/73 07/19/23 16:05 Pulse Oximetry 99 07/19/23 16:05 Oxygen Delivery Me thod Room Air 07/19/23 16:05 MDM - Animal Bite Medical Decision Making Patient seen for a cat bite. Recently treated with Augmentin for another cat bite, this improved. Cat is able to be quarantined and is a household Of the patient's. X-ray of the left hand unremarkable for any acute findings. Tetanus was updated with her last visit. Patient will be started on again on Augmentin due to appropriate response to last cat bite, and reasons to return thoroughly discussed including any signs of infection. Did inform patient that if the cat shows any abnormal behavioral changes, to return immediately to begin rabies prophylaxis. All other questions concerns addressed at this time. XR interpretation done by ED provider, pending radiology final review Discharge Plan Discharge Patient Disposition: Home Clinical Impression: Cat bite Qualifiers: Encounter type: initial encounter Qualified Code(s): W55.01XA - Bitten by cat, initial encounter Condition: Stable Prescriptions: New amoxicillin-pot clavulanate 875-125 mg tablet 1 tab PO BID 10 Days Qty: 20 0RF No Action multivitamin Tablet 1 tab PO DAILY acetaminophen [Tylenol Extra Strength] 500 mg tablet 500 mg PO Q6H PRN (Reason: Pain) diphenhydramine-acetaminophen [Tylenol PM Extra Strength] 25-500 mg tablet 1 tab PO Q6H PRN (Reason: Pain) insulin aspart U-100 [Novolog FlexPen U-100 Insulin] 100 unit/mL (3 mL) insulin pen 30 unit SUBCUT QID 90 Days Qty: 108 1RF minoxidil 5 % foam 1 ea topical BID Qty: 60 3RF Rx Instructions: Use topically twice daily for 4 months if no improvement may discontinue at that time. mupirocin 2 % ointment 1 applic topical BID Qty: 22 0RF duloxetine 60 mg capsule,delayed release(DR/EC) See Rx Instructions .ROUTE .COMPLEX Qty: 90 1RF Dose Instruction: Take 1 capsule by mouth once daily Rx Instructions: Take 1 capsule by mouth once daily Venofer 200 mg iron/10 mL solution 200 mg IV .weekly Qty: 50 0RF Rx Instructions: administer over 30 mins D50.9 - Iron Deficiency anemia (DME) OneTouch Ultra Test Strip See Rx Instructions .Route Qty: 400 0RF Rx Instructions: Test BS 4 times a day. Lantus Solostar U-100 Insulin 100 unit/mL (3 mL) insulin pen See Rx Instructions .ROUTE .COMPLEX Qty: 60 0RF Dose Instruction: INJECT 30 UNITS SUB-Q TWO TIMES A DAY Rx Instructions: INJECT 30 UNITS SUB-Q TWO TIMES A DAY atorvastatin 20 mg tablet See Rx Instructions .ROUTE .COMPLEX Qty: 90 0RF Dose Instruction: Take 1 tablet by mouth once daily Rx Instructions: Take 1 tablet by mouth once daily cholecalciferol (vitamin D3) 1,250 mcg (50,000 unit) capsule See Rx Instructions .ROUTE .COMPLEX Qty: 12 0RF Dose Instruction: Take 1 capsule by mouth once a week Rx Instructions: Take 1 capsule by mouth once a week (DME) Dexcom G7 Web Content Director Misc See Rx Instructions .ROUTE .COMPLEX Qty: 1 0RF Dose Instruction: USE DIRECTED Rx Instructions: USE DIRECTED (DME) Dexcom G7 Sensor Device See Rx Instructions .ROUTE .COMPLEX Qty: 9 0RF Dose Instruction: CHANGE EVERY 10 DAYS Rx Instructions: CHANGE EVERY 10 DAYS fluconazole 150 mg tablet 150 mg PO Q3D Qty: 2 0RF Rx Instructions: may repeat second dose 72 hrs after first dose if symptoms persist metformin 1,000 mg tablet 1,000 mg PO DAILY 90 Days Qty: 90 0RF (DME) pen needle, diabetic [TechLITE Pen Needle] 31 gauge x 5/16 needle See Rx Instructions .ROUTE .COMPLEX Qty: 600 0RF Dose Instruction: USE 1 PEN NEEDLE 6 TIMES EACH DAY Rx Instructions: USE 1 PEN NEEDLE 6 TIMES EACH DAY amoxicillin-pot clavulanate 875-125 mg tablet 1 tab PO BID Qty: 14 0RF celecoxib 100 mg capsule 100 mg PO BID PRN (Reason: pain) Qty: 20 0RF hydrocodone-acetaminophen 5-325 mg tablet 1 tab PO Q6H PRN (Reason: pain (scale score 7-10)) Qty: 7 0RF Discharge Orders: Discharge ED (Routine); Ordered 07/19/23 Ordered By: Tremayne Phillip Referrals: Vandana Aguilar DO [Primary Care Provider] - Discharge Diet: Usual diet Discharge Activity: Increase activity as tolerated Patient Instructions: Animal Bite (ED), Pain Management Activity Restrictions/Additional Instructions: Monitor cat and keep quarantine as discussed, report back with any abnormalities with the animal. Take Augmentin as prescribed. Ice to the area for added relief, alternate Tylenol and ibuprofen for pain. Return with any new or concerning signs of infection. Follow-up with primary care as needed. Coding Level of Care Code ED Physician Relations Specialist for [facility] Documented by User: Yemi Nascimento DO 07/20/23 07:07 HPI - Animal Bite General: Chief Complaint: Animal Bite Stated Complaint: right hand cat bite Time Seen by Provider: 07/19/23 16:37 PFSH ED PFSH: Medical History RANDALL (nonalcoholic steatohepatitis) delivery delivered Carpal tunnel syndrome on both sides Surgical History History of partial hysterectomy Due to fibroids Gastric bypass status for obesity Family History Father Diabetes Stroke Multiple myeloma Kidney failure Hepatic sclerosis Mother Hypertension COPD (chronic obstructive pulmonary disease) Heart disease Social History Smoking and tobacco/nicotine status: never used tobacco/nicotine Second hand smoke exposure: No Alcohol intake: current Alcohol intake frequency: holidays/special occasions only Alcohol type: beer Substance/Drug Use: never Adopted: No Caregiver/support person: No Lives independently: Yes Household members: significant other and children Housing: House Marital status: Single Number of children: 3 Highest education level completed: Associate Degree: Academic Program service: No Current occupational status: unemployed Pets and animals: Yes Course Vital Signs: Vital signs: Vital Signs Temperature 97.5 F L 07/19/23 16:05 Pulse Rate 91 07/19/23 16:05 Respiratory Rate 16 07/19/23 16:05 Blood Pressure 133/73 07/19/23 16:05 Pulse Oximetry 99 07/19/23 16:05 Oxygen Delivery Me thod Room Air 07/19/23 16:05 MDM - Animal Bite Medical Decision Making Patient seen for a cat bite. Recently treated with Augmentin for another cat bite, this improved. Cat is able to be quarantined and is a household Of the patient's. X-ray of the left hand unremarkable for any acute findings. Tetanus was updated with her last visit. Patient will be started on again on Augmentin due to appropriate response to last cat bite, and reasons to return thoroughly discussed including any signs of infection. Did inform patient that if the cat shows any abnormal behavioral changes, to return immediately to begin rabies prophylaxis. All other questions concerns addressed at this time. Chart reviewed Discharge Plan Discharge Patient Disposition: Home Clinical Impression: Cat bite Qualifiers: Encounter type: initial encounter Qualified Code(s): W55.01XA - Bitten by cat, initial encounter Condition: Stable Prescriptions: New amoxicillin-pot clavulanate 875-125 mg tablet 1 tab PO BID 10 Days Qty: 20 0RF No Action multivitamin Tablet 1 tab PO DAILY acetaminophen [Tylenol Extra Strength] 500 mg tablet 500 mg PO Q6H PRN (Reason: Pain) diphenhydramine-acetaminophen [Tylenol PM Extra Strength] 25-500 mg tablet 1 tab PO Q6H PRN (Reason: Pain) insulin aspart U-100 [Novolog FlexPen U-100 Insulin] 100 unit/mL (3 mL) insulin pen 30 unit SUBCUT QID 90 Days Qty: 108 1RF minoxidil 5 % foam 1 ea topical BID Qty: 60 3RF Rx Instructions: Use topically twice daily for 4 months if no improvement may discontinue at that time. mupirocin 2 % ointment 1 applic topical BID Qty: 22 0RF duloxetine 60 mg capsule,delayed release(DR/EC) See Rx Instructions .ROUTE .COMPLEX Qty: 90 1RF Dose Instruction: Take 1 capsule by mouth once daily Rx Instructions: Take 1 capsule by mouth once daily Venofer 200 mg iron/10 mL solution 200 mg IV .weekly Qty: 50 0RF Rx Instructions: administer over 30 mins D50.9 - Iron Deficiency anemia (DME) OneTouch Ultra Test Strip See Rx Instructions .Route Qty: 400 0RF Rx Instructions: Test BS 4 times a day. Lantus Solostar U-100 Insulin 100 unit/mL (3 mL) insulin pen See Rx Instructions .ROUTE .COMPLEX Qty: 60 0RF Dose Instruction: INJECT 30 UNITS SUB-Q TWO TIMES A DAY Rx Instructions: INJECT 30 UNITS SUB-Q TWO TIMES A DAY atorvastatin 20 mg tablet See Rx Instructions .ROUTE .COMPLEX Qty: 90 0RF Dose Instruction: Take 1 tablet by mouth once daily Rx Instructions: Take 1 tablet by mouth once daily cholecalciferol (vitamin D3) 1,250 mcg (50,000 unit) capsule See Rx Instructions .ROUTE .COMPLEX Qty: 12 0RF Dose Instruction: Take 1 capsule by mouth once a week Rx Instructions: Take 1 capsule by mouth once a week (DME) Dexcom G7 Web Content Director Misc See Rx Instructions .ROUTE .COMPLEX Qty: 1 0RF Dose Instruction: USE DIRECTED Rx Instructions: USE DIRECTED (DME) Dexcom G7 Sensor Device See Rx Instructions .ROUTE .COMPLEX Qty: 9 0RF Dose Instruction: CHANGE EVERY 10 DAYS Rx Instructions: CHANGE EVERY 10 DAYS fluconazole 150 mg tablet 150 mg PO Q3D Qty: 2 0RF Rx Instructions: may repeat second dose 72 hrs after first dose if symptoms persist metformin 1,000 mg tablet 1,000 mg PO DAILY 90 Days Qty: 90 0RF (DME) pen needle, diabetic [TechLITE Pen Needle] 31 gauge x 5/16 needle See Rx Instructions .ROUTE .COMPLEX Qty: 600 0RF Dose Instruction: USE 1 PEN NEEDLE 6 TIMES EACH DAY Rx Instructions: USE 1 PEN NEEDLE 6 TIMES EACH DAY amoxicillin-pot clavulanate 875-125 mg tablet 1 tab PO BID Qty: 14 0RF celecoxib 100 mg capsule 100 mg PO BID PRN (Reason: pain) Qty: 20 0RF hydrocodone-acetaminophen 5-325 mg tablet 1 tab PO Q6H PRN (Reason: pain (scale score 7-10)) Qty: 7 0RF Discharge Orders: Discharge ED (Routine); Ordered 07/19/23 Ordered By: Tremayne Phillip Referrals: Vandana Aguilar DO [Primary Care Provider] - Discharge Diet: Usual diet Discharge Activity: Increase activity as tolerated Patient Instructions: Animal Bite (ED), Pain Management Activity Restrictions/Additional Instructions: Monitor cat and keep quarantine as discussed, report back with any abnormalities with the animal. Take Augmentin as prescribed. Ice to the area for added relief, alternate Tylenol and ibuprofen for pain. Return with any new or concerning signs of infection. Follow-up with primary care as needed. Coding Level of Care Code ED Physician Relations Specialist for Oliva Ochoa
[2023-07-19] MEDS: ketorolac 60 mg/2 mL INJ IM (17:06)
== END 2023-07-19 17:49 | disposition home or self-care (01) ==
PROVIDERS: Emergency Provider Physician Assistant; PCP Family Medicine
DX: S60.571A Other superficial bite of hand of right hand, initial encounter (principal); W55.01XA Bitten by cat, initial encounter
CPT/HCPCS: 73130; 96372; 99284; J1885

== ENCOUNTER 2023-07-22 09:09 | Outpatient (CLI) | payer BC, MEDICAID, SELFPAY ==
--- NOTE | 2023-07-22 09:30 | MR_ITS ---
WS: [id number] MRI CERVICAL SPINE NONCONTRAST TECHNIQUE: Sagittal T1, T2 and STIR imaging. Axial T2, gradient, and fiesta imaging. CLINICAL INFORMATION: M54.12 - Radiculopathy, cervical region COMPARISON: MRI 10/04/2021 FINDINGS: Straightening of the normal cervical lordosis. Disc bulging worse C4-C5 C6-C7 and T1-2. C2-C3: Mild facet arthropathy. Mild LEFT and no significant RIGHT foraminal narrowing. C3-C4: Tiny central protrusion. Mild facet arthropathy. Spinal canal and foramen are patent. C4-C5: Central disc osteophyte protrusion. Slight indentation of the cervical cord with mild central canal stenosis. Mild LEFT foraminal narrowing. Moderate facet arthropathy. C5-C6: Tiny central protrusion. Mild LEFT and no significant RIGHT foraminal narrowing. Mild central canal stenosis. C6-C7: Broad-based central protrusion. Moderate central canal stenosis with slight indentation of the cervical cord. Mild bilateral foraminal narrowing. C7-T1: Tiny central protrusion. Spinal canal and foramen are patent. T1-T2: Mild disc bulging. Mild central canal stenosis. Mild RIGHT greater than LEFT bony foraminal na rrowing. Visualized brain stem structures: Normal. Prevertebral soft tissues: Normal. MR/MR cervical spin wo con* [id number] IMPRESSION: 1. Straightening of the normal cervical lordosis. Cord signal is normal. 2. Mild central canal stenosis C4-5 with a small central protrusion progressed compared to previous. 3. Disc bulging C6-7 with moderate central canal stenosis appears stable. 4. Small central protrusion T1-2 with mild central canal stenosis. This is unc hanged. 5. Mild bony foraminal narrowing similar to previous.. 6. Mild congenital central canal stenosis unchanged.
== END 2023-07-22 09:10 | disposition home or self-care (01) ==
LOC: RAD 09:10
PROVIDERS: PCP Family Medicine; Visit Provider Anesthesiology Pain Medicine
DX: M54.12 Radiculopathy, cervical region (principal); M54.81 Occipital neuralgia; M48.02 Spinal stenosis, cervical region; M50.221 Other cervical disc displacement at C4-C5 level; M50.323 Other cervical disc degeneration at C6-C7 level; M51.24 Other intervertebral disc displacement, thoracic region; M47.812 Spondylosis without myelopathy or radiculopathy, cervical region; M25.78 Osteophyte, vertebrae; M51.34 Other intervertebral disc degeneration, thoracic region; M48.04 Spinal stenosis, thoracic region
CPT/HCPCS: 72141

== ENCOUNTER 2023-09-30 20:42 | Emergency (ER) | payer BC, MEDICAID, SELFPAY ==
[2023-09-30 20:47] VITALS: BP 146/89; PULSE 85; RESP 16; TEMP 36.6; O2SAT 97
[2023-09-30 20:50] VITALS: BP 150/99; PULSE 85; RESP 17; O2SAT 97
--- NOTE | 2023-09-30 20:58 | XRR_ITS ---
PROCEDURE INFORMATION: Exam: XR Right Ribs with PA Chest Exam date and time: 09/30/2023 9:01 PM Age: 43 years old Clinical indication: Injury or trauma; Fall; Rib area; Blunt trauma (contusions or hematomas) TECHNIQUE: Imaging protocol: Radiologic exam of the right ribs with PA chest. Views: 3 views COMPARISON: MR cervical spin wo con* [id number] 07/22/2023 9:27 AM FINDINGS: Lungs: The lungs are adequately expanded. No focal consolidations or pulmonary edema. Pleural spaces: No pleural effusions or pneumothorax. Heart/Mediastinum: Unremarkable. No cardiomegaly. Bones/joints: No acute fractures. No rib fractures visualized. XR/XR ribs RT mn 3V w [id number] IMPRESSION: No acute rib fractures visualized.
--- NOTE | 2023-09-30 21:01 | XRR_ITS ---
PROCEDURE INFORMATION: Exam: XR Lumbosacral Spine Exam date and time: 09/30/2023 9:05 PM Age: 43 years old Clinical indication: Injury or trauma; Fall; Blunt trauma (contusions or hematomas) TECHNIQUE: Imaging protocol: Radiologic exam of the lumbosacral spine. Views: 2 or 3 views. COMPARISON: No relevant prior studies available. FINDINGS: Bones/joints: No acute fractures or subluxations. 2 mm retrolisthesis of L5 on S1. The vertebral body heights are preserved. Moderate intervertebral disc space narrowing at L5-S1. Mild bilateral facet arthropathy. Small endplate osteophytes. Posterior elements are intact. Soft tissues: Unremarkable. Other findings: Moderate stool burden. XR/XR lumbar spine 2-3V* [id number] IMPRESSION: 1. No acute fractures or subluxations. 2. Phat-rn-hjkshere lumbar spondylosis.
--- NOTE | 2023-09-30 21:04 | ED_ITS ---
HPI - SOB/Dyspnea General: Chief Complaint: Shortness of Breath/Dyspnea Stated Complaint: fall right side Chest SOB Time Seen by Provider: 09/30/23 20:58 Source: patient Mode of arrival: ambulatory Limitations: no limitations History of Present Illness: HPI Narrative: 43-year-old female who states that she h ad a fall 2 weeks ago fell onto her right side states she fell onto her right rib states been having right-sided chest pain is worse with palpation and inhalation with some slight lower back pain as well she denies any other injuries denies any her head denies any neck pain denies any cough or fever Associated symptoms: Reports chest pain; Deny abdominal pain, fever(s), nausea or vomiting Review of Systems Const: Denies: fever(s), chills, body aches or change in appetite ENMT: Denies: throat pain or dental pain Card: Reports: chest pain Resp: Denies: dyspnea GI: Denies: abdominal pain, nausea, vomiting or diarrhea Musc: Reports: back pain; Denies: neck pain Skin/Breast: Denies: rash Neuro: Denies: headache(s) PFSH ED PFSH: Medical History RANDALL (nonalcoholic steatohepatitis) delivery delivered Carpal tunnel syndrome on both sides Surgical History History of partial hysterectomy Due to fibroids Gastric bypass status for obesity Family History Father Diabetes Stroke Multiple myeloma Kidney failure Hepatic sclerosis Mother Hypertension COPD (chronic obstructive pulmonary disease) Heart disease Social History Smoking and tobacco/nicotine status: never used tobacco/nicotine Second hand smoke exposure: No Alcohol intake: current Alcohol intake frequency: holidays/special occasions only Alcohol type: beer Substance/Drug Use: never Adopted: No Caregiver/support person: No Lives independently: Yes Household members: significant other and children Housing: House Marital status: Single Number of children: 3 Highest education level completed: Associate Degree: Academic Program service: No Current occupational status: unemployed Pets and animals: Yes Physical Exam Const: COMMON NORMALS: no acute distress, patient oriented x3 and healthy appearing HENMT: COMMON NORMALS: normocephalic and atraumatic HEAD & SCALP: normocephalic and atraumatic Eye: COMMON NORMALS: conjunctivae normal CONJUNCTIVA: Yes conjunctivae normal Neck/C-Spine: COMMON NORMALS: full ROM and supple Chest: COMMONS NORMALS: normal inspection of the chest OTHER: tenderness over right chest wall Resp: COMMON NORMALS: normal respiratory effort, No retractions, No use of accessory muscles and clear to auscultation bilaterally AUSCULTATION: clear to auscultation bilaterally Cardio: COMMON NORMALS: regular rate, regular rhythm and No murmurs present (Cardio) RATE: regular rate RHYTHM: regular rhythm GI: COMMON NORMALS: Normal to inspection, nondistended, normoactive bowel sounds present, Soft to palpation, non-tender and no masses PALPATION: Yes Soft to palpation Extremity: COMMON NORMALS: normal to inspection and full ROM Neuro: COMMON NORMALS: patient oriented x3, moves all extremities and no focal motor deficits Psych: COMMON NORMALS: mental status grossly normal, Normal thought process present and cooperative THOUGHT PROCESS: Normal thought process present Skin: COMMON NORMALS: no rashes or lesions noted and no wounds GENERAL SKIN EXAM: no rashes or lesions noted Course Vital Signs: Vital signs: Vital Signs Temperature 97.9 F 09/30/23 20:47 Pulse Rate 85 09/30/23 20:47 Respiratory Rate 16 09/30/23 20:47 Blood Pressure 146/89 09/30/23 20:47 Pulse Oximetry 97 09/30/23 20:47 Oxygen Delivery Me thod Room Air 09/30/23 20:47 MDM - SOB/Dyspnea Medical Decision Making Patient presents here with chest wall contusion from the fall x-rays here show no fractures she stable for discharge follow-up with PCP return if worsening Medical Records I reviewed the patient's medical records. All radiology interpretation(s) finalized by discharge ED provider radiology interpretation(s): xr ribs: no fx xr lumbar: no fx Discharge Plan Discharge Patient Disposition: Home Clinical Impression: Chest wall contusion, Fall Condition: Stable Prescriptions: New Naprosyn 500 mg tablet 500 mg PO BID PRN (Reason: pain) Qty: 20 0RF No Action multivitamin Tablet 1 tab PO DAILY acetaminophen [Tylenol Extra Strength] 500 mg tablet 500 mg PO Q6H PRN (Reason: Pain) diphenhydramine-acetaminophen [Tylenol PM Extra Strength] 25-500 mg tablet 1 tab PO Q6H PRN (Reason: Pain) insulin aspart U-100 [Novolog FlexPen U-100 Insulin] 100 unit/mL (3 mL) insulin pen 30 unit SUBCUT QID 90 Days Qty: 108 1RF minoxidil 5 % foam 1 ea topical BID Qty: 60 3RF Rx Instructions: Use topically twice daily for 4 months if no improvement may discontinue at that time. mupirocin 2 % ointment 1 applic topical BID Qty: 22 0RF duloxetine 60 mg capsule,delayed release(DR/EC) See Rx Instructions .ROUTE .COMPLEX Qty: 90 1RF Dose Instruction: Take 1 capsule by mouth once daily Rx Instructions: Take 1 capsule by mouth once daily Venofer 200 mg iron/10 mL solution 200 mg IV .weekly Qty: 50 0RF Rx Instructions: administer over 30 mins D50.9 - Iron Deficiency anemia cholecalciferol (vitamin D3) 1,250 mcg (50,000 unit) capsule See Rx Instructions .ROUTE .COMPLEX Qty: 12 0RF Dose Instruction: Take 1 capsule by mouth once a week Rx Instructions: Take 1 capsule by mouth once a week (DME) 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 Misc See Rx Instructions .ROUTE .COMPLEX Qty: 1 0RF Dose Instruction: USE DIRECTED Rx Instructions: USE DIRECTED fluconazole 150 mg tablet 150 mg PO Q3D Qty: 2 0RF Rx Instructions: may repeat second dose 72 hrs after first dose if symptoms persist metformin 1,000 mg tablet 1,000 mg PO DAILY 90 Days Qty: 90 0RF (DME) pen needle, diabetic [TechLITE Pen Needle] 31 gauge x 5/16 needle See Rx Instructions .ROUTE .COMPLEX Qty: 600 0RF Dose Instruction: USE 1 PEN NEEDLE 6 TIMES EACH DAY Rx Instructions: USE 1 PEN NEEDLE 6 TIMES EACH DAY atorvastatin 20 mg tablet See Rx Instructions .ROUTE .COMPLEX Qty: 90 0RF Dose Instruction: Take 1 tablet by mouth once daily Rx Instructions: Take 1 tablet by mouth once daily (DME) OneTouch Ultra Test Strip See Rx Instructions .Route Qty: 400 0RF Rx Instructions: Test BS 4 times a day. (DME) Dexcom G7 Sensor Device See Rx Instructions .ROUTE .COMPLEX Qty: 9 0RF Dose Instruction: CHANGE EVERY 10 DAYS Rx Instructions: CHANGE EVERY 10 DAYS Lantus Solostar U-100 Insulin 100 unit/mL (3 mL) insulin pen 30 unit SUBCUT BID Qty: 60 0RF amoxicillin-pot clavulanate 875-125 mg tablet 1 tab PO BID Qty: 14 0RF celecoxib 100 mg capsule 100 mg PO BID PRN (Reason: pain) Qty: 20 0RF hydrocodone-acetaminophen 5-325 mg tablet 1 tab PO Q6H PRN (Reason: pain (scale score 7-10)) Qty: 7 0RF Discharge Orders: Discharge ED (Routine); Ordered 09/30/23 Ordered By: George Curry Discharge Diet: Advance as tolerated Discharge Activity: Resume usual activity Patient Instructions: Chest Wall Pain (ED) Coding Level of Care Code ED Educational Administrator for Oliva Ochoa
[2023-09-30 21:20] VITALS: BP 139/77; PULSE 96; RESP 17; O2SAT 96
[2023-09-30] MEDS: HYDROcodone-acetaminophen 7.5-325 mg Tablet 1 TAB PO (21:26)
[2023-09-30 21:37] VITALS: BP 142/83; PULSE 78; RESP 17; O2SAT 96
== END 2023-09-30 21:41 | disposition home or self-care (01) ==
PROVIDERS: Emergency Provider Emergency Medicine
DX: S20.211A Contusion of right front wall of thorax, initial encounter (principal); Z79.4 Long term (current) use of insulin; Z79.84 Long term (current) use of oral hypoglycemic drugs; W19.XXXA Unspecified fall, initial encounter
CPT/HCPCS: 71101; 72100; 99284

== ENCOUNTER 2023-10-29 14:33 | Outpatient (CLI) | payer BC, MEDICAID, SELFPAY ==
[2023-10-29 15:36] LABS: Basophils # 0.1 10^3/uL (0.0-0.1); Basophils % 0.6 %; Eosinophils # 0.3 10^3/uL (0.0-0.8); Eosinophils % 3.8 %; Hematocrit 41.1 % (36-47); Lymphocytes # 2.2 10^3/uL (0.8-4.8); Lymphocytes % 26.6 %; Mean Corpuscular HGB Conc 34.3 g/dL (30-55); Mean Corpuscular Hemoglobin 31.2 pg (27-33); Mean Corpuscular Volume 90.9 fl (85-98); Mean Platelet Volume 9.6 fL (7.4-10.4); Monocytes # 0.4 10^3/uL (0.2-0.9); Monocytes % 4.6 %; Neutrophils # 5.41 10^3/uL (1.8-7.7); Neutrophils % 64.2 %; Nucleated Red Blood Cells % 0 %; Platelet Count 286 10^3/cmm (157-399); Red Blood Count 4.52 10^6/uL (3.85-5.65); Red Cell Distribution Width 11.9 % (12.1-15.1); White Blood Count 8.43 10^3/uL (3.29-11.43)
[2023-10-29 15:46] LABS: Estmated Average Glucose 206; Hemoglobin A1C 8.8 % (4.0-6.0)
[2023-10-29 16:18] LABS: Creatinine Urine, Random 33 mg/dL (28-217); Microalbum Creatinine Ratio Ur 30 mg/dL (0-20); Microalbumin Random Urine 1 ug/dL (0-20)
[2023-10-29 16:49] LABS: 25 Hydroxy Vitamin D 30 ng/mL (30-100); Alanine Aminotransferase 18 U/L (0-33); Albumin Level 4.1 g/dL (3.5-5.2); Alkaline Phosphatase 92 U/L (35-105); Aspartate Amino Transferase 15 U/L (0-32); Blood Urea Nitrogen 10 mg/dL (6-20); Calcium 8.9 mg/dL (8.5-10.5); Carbon Dioxide 24 mmol/L (22-29); Chloride 99 mmol/L (98-107); Chol HDL Ratio 4.29 mg/dL (0.0-4.40); Cholesterol 180 mg/dL (0-200); Globulin 3.4 g/dL (1.3-4.6); Glomerular Filtration Rate 133.4 mL/min (90-130); Glucose 160 mg/dL (65-115); HDL Cholesterol 42 mg/dL (60-100); LDL Cholesterol Calculated 103 mg/dL (50-129); LDL HDL Ratio 2.45 RATIO (0.00-3.22); Osmolality Calculated 282 mOsm/kg (285-295); Sodium 135 mmol/L (136-145); Total Bilirubin 0.6 mg/dL (0.15-1.2); Total Protein 7.5 g/dL (6.6-8.7); Triglycerides 177 mg/dL (0-150)
== END 2023-10-29 14:34 | disposition home or self-care (01) ==
LOC: LAB 14:35
PROVIDERS: Visit Provider Internal Medicine
DX: E66.9 Obesity, unspecified (principal); E10.65 Type 1 diabetes mellitus with hyperglycemia
CPT/HCPCS: 36415; 80053; 80061; 82044; 82306; 83036; 85025

== ENCOUNTER 2023-11-07 14:28 | Outpatient (CLI) | payer BC, MEDICAID, SELFPAY ==
--- NOTE | 2023-11-07 14:30 | MM_ITS ---
WS: [id number] BILATERAL SCREENING DIGITAL TOMOSYNTHESIS MAMMOGRAM WITH CAD HISTORY: screening COMPARISON: 03/30/2022, 01/13/2021 Bilateral CC and MLO views with tomosynthesis and synthetic mammography submitted. Computer aided det ection analyzed. Breast composition: The breasts are heterogeneously dense, which may obscure small masses. No suspici ous masses, microcalcifications or architectural distortion. Benign calcifications in each breast. As ymmetry LEFT subareolar region is stable over multiple prior exams. MM/[place] [id number] IMPRESSION: BI-RADS: 2 - Benign FOLLOW UP: 1 Year Follow-up
== END 2023-11-07 14:29 | disposition home or self-care (01) ==
LOC: RAD 14:29
DX: Z12.31 Encounter for screening mammogram for malignant neoplasm of breast (principal); R92.333 Mammographic heterogeneous density, bilateral breasts; R92.1 Mammographic calcification found on diagnostic imaging of breast; N64.89 Other specified disorders of breast
CPT/HCPCS: 77063; 77067

== ENCOUNTER → 2024-02-03 15:47 | Outpatient (BNVA) | payer BC, MEDICAID, SELFPAY | DX: D50.8 Other iron deficiency anemias (principal) | CPT/HCPCS: 85025 ==

== ENCOUNTER 2024-02-19 12:25 | Outpatient (CLI) | payer BC, MEDICAID, SELFPAY ==
[2024-02-19 12:51] LABS: Basophils # 0.1 10^3/uL (0.0-0.1); Basophils % 0.7 %; Eosinophils # 0.2 10^3/uL (0.0-0.8); Hematocrit 40.7 % (36-47); Lymphocytes # 2.1 10^3/uL (0.8-4.8); Lymphocytes % 29.4 %; Mean Corpuscular HGB Conc 34.2 g/dL (30-55); Mean Corpuscular Hemoglobin 31.7 pg (27-33); Mean Corpuscular Volume 92.7 fl (85-98); Mean Platelet Volume 8.9 fL (7.4-10.4); Monocytes # 0.3 10^3/uL (0.2-0.9); Monocytes % 4.3 %; Neutrophils # 4.38 10^3/uL (1.8-7.7); Neutrophils % 62.5 %; Nucleated Red Blood Cells % 0 %; Platelet Count 322 10^3/cmm (157-399); Red Blood Count 4.39 10^6/uL (3.85-5.65); Red Cell Distribution Width 11.7 % (12.1-15.1); White Blood Count 7.01 10^3/uL (3.29-11.43)
[2024-02-19 13:05] LABS: Estmated Average Glucose 226; Hemoglobin A1C 9.5 % (4.0-6.0)
[2024-02-19 13:10] LABS: Creatinine Urine, Random 59 mg/dL (28-217); Microalbum Creatinine Ratio Ur 17 mg/dL (0-20); Microalbumin Random Urine 1 ug/dL (0-20)
[2024-02-19 13:14] LABS: Alanine Aminotransferase 30 U/L (0-33); Alkaline Phosphatase 96 U/L (35-105); Anion Gap 13.9 (5-19); Aspartate Amino Transferase 20 U/L (0-32); Blood Urea Nitrogen 10 mg/dL (6-20); Calcium 9.2 mg/dL (8.5-10.5); Carbon Dioxide 25 mmol/L (22-29); Chloride 100 mmol/L (98-107); Cholesterol 156 mg/dL (0-200); Ferritin 41 ng/mL (15-150); Globulin 3.6 g/dL (1.3-4.6); Glomerular Filtration Rate 133.4 mL/min (90-130); Glucose 258 mg/dL (65-115); HDL Cholesterol 41 mg/dL (60-100); Iron 84 ug/dL (37-145); LDL Cholesterol Calculated 76 mg/dL (50-129); LDL HDL Ratio 1.85 RATIO (0.00-3.22); Osmolality Calculated 288 mOsm/kg (285-295); Potassium 3.9 mmol/L (3.5-5.1); Sodium 135 mmol/L (136-145); Total Bilirubin 0.5 mg/dL (0.15-1.2); Total Iron Binding Capacity 349 mcg/dl; Total Protein 7.6 g/dL (6.6-8.7); Triglycerides 197 mg/dL (0-150); Unsaturated Iron Binding 265 ug/dL (112-347)
== END 2024-02-19 12:26 | disposition home or self-care (01) ==
LOC: LAB 12:26
PROVIDERS: Internal Medicine
DX: D50.8 Other iron deficiency anemias (principal); E78.2 Mixed hyperlipidemia; Z79.4 Long term (current) use of insulin; E10.65 Type 1 diabetes mellitus with hyperglycemia; E16.0 Drug-induced hypoglycemia without coma; T38.3X5A Adverse effect of insulin and oral hypoglycemic [antidiabetic] drugs, initial encounter; X58.XXXA Exposure to other specified factors, initial encounter
CPT/HCPCS: 36415; 80053; 80061; 82044; 82728; 83036; 83540; 83550; 85025

== ENCOUNTER 2024-05-25 12:31 | Outpatient (CLI) | payer BC, MEDICAID, SELFPAY ==
[2024-05-25 13:29] LABS: Estmated Average Glucose 223; Hemoglobin A1C 9.4 % (4.0-6.0)
[2024-05-25 13:33] LABS: Creatinine Urine, Random 40 mg/dL (28-217); Microalbum Creatinine Ratio Ur 25 mg/dL (0-20); Microalbumin Random Urine 1 ug/dL (0-20)
[2024-05-25 13:40] LABS: Alanine Aminotransferase 28 U/L (0-33); Albumin Level 4.4 g/dL (3.5-5.2); Alkaline Phosphatase 101 U/L (35-105); Anion Gap 17.4 (5-19); Aspartate Amino Transferase 18 U/L (0-32); Blood Urea Nitrogen 15 mg/dL (6-20); Calcium 9.6 mg/dL (8.5-10.5); Carbon Dioxide 22 mmol/L (22-29); Chloride 100 mmol/L (98-107); Cholesterol 172 mg/dL (0-200); Globulin 3.6 g/dL (1.3-4.6); Glomerular Filtration Rate 107.6 mL/min (90-130); Glucose 324 mg/dL (65-115); HDL Cholesterol 41 mg/dL (60-100); LDL Cholesterol Calculated 52 mg/dL (50-129); LDL HDL Ratio 1.27 RATIO (0.00-3.22); Osmolality Calculated 293 mOsm/kg (285-295); Potassium 4.4 mmol/L (3.5-5.1); Sodium 135 mmol/L (136-145); Total Bilirubin 0.5 mg/dL (0.15-1.2); Triglycerides 397 mg/dL (0-150)
== END 2024-05-25 12:32 | disposition home or self-care (01) ==
LOC: LAB 12:33
PROVIDERS: Visit Provider Internal Medicine
DX: E10.65 Type 1 diabetes mellitus with hyperglycemia (principal)
CPT/HCPCS: 36415; 80053; 80061; 82044; 83036

== ENCOUNTER → 2024-07-08 11:03 | Outpatient (BNVA) | payer BC, MEDICAID, SELFPAY | PROVIDERS: Visit Provider Family Medicine | DX: E13.9 Other specified diabetes mellitus without complications (principal); I10 Essential (primary) hypertension; L03.012 Cellulitis of left finger | CPT/HCPCS: 82947; 82962 ==

== ENCOUNTER → 2024-08-13 09:56 | Outpatient (BNVA) | payer BC, MEDICAID, SELFPAY | PROVIDERS: PCP Family Medicine; Visit Provider Family Medicine | DX: E16.0 Drug-induced hypoglycemia without coma (principal); D50.8 Other iron deficiency anemias; T38.3X5A Adverse effect of insulin and oral hypoglycemic [antidiabetic] drugs, initial encounter; E10.65 Type 1 diabetes mellitus with hyperglycemia; Z98.84 Bariatric surgery status; E66.9 Obesity, unspecified; Z79.4 Long term (current) use of insulin; E78.2 Mixed hyperlipidemia; X58.XXXA Exposure to other specified factors, initial encounter | CPT/HCPCS: 80053; 80061; 82043; 82728; 83036; 83550; 85025 ==

== ENCOUNTER 2024-08-18 15:45 | Outpatient (CLI) | payer BC, MEDICAID, SELFPAY ==
--- NOTE | 2024-08-18 15:54 | XR_ITS ---
WS: [id number] Lumbar spine, 4 views including both obliques, 08/18/2024 Clinical Data: OTHER SPONDYLOSIS LUMBOSACRAL REGION Comparison: Lumbar spine, 09/30/2023. Findings: No compression fractures or subluxation is seen. There is minimal disc narrowing at L4-L5 and L5-S1. There are small osteophytes L2-L5. The transverse processes and SI joints are normal. No spondylolysis is seen on the oblique images. XR/XR lumbar spine min 4V [id number] Impression: 1. Minimal disc narrowing at L4-L5 and L5-S1 with osteophytes L2-L5. 2. No spondylolysis on oblique images.
== END 2024-08-18 15:46 | disposition home or self-care (01) ==
LOC: RAD 15:47
PROVIDERS: PCP Family Medicine; Visit Provider Student in an Organized Health Care Education/Training Program
DX: M25.78 Osteophyte, vertebrae (principal)
CPT/HCPCS: 72110

== ENCOUNTER → 2024-11-17 11:30 | Outpatient (BNVA) | payer BC, MEDICAID, SELFPAY | PROVIDERS: PCP Family Medicine; Visit Provider Family Medicine | DX: D50.8 Other iron deficiency anemias (principal) | CPT/HCPCS: 82728; 83550; 85025 ==

== ENCOUNTER → 2024-11-20 13:25 | Outpatient (BNVA) | payer BC, MEDICAID, SELFPAY | PROVIDERS: PCP Family Medicine; Visit Provider Internal Medicine | DX: E10.65 Type 1 diabetes mellitus with hyperglycemia (principal) | CPT/HCPCS: 36415; 80053; 80061; 82044; 83036; 83721 ==

== ENCOUNTER 2024-11-30 13:56 | Outpatient (CLI) | payer BC, MEDICAID, SELFPAY ==
--- NOTE | 2024-11-30 14:00 | USR_ITS ---
PROCEDURE INFORMATION: Exam: US Left Limited Joint or Other Non-Vascular Extremity Structure Exam date and time: 11/30/2024 02:11 PM Age: 44 years old Clinical indication: Pain; Ankle; Left; Additional info: Left le - achilles pain TECHNIQUE: Imaging protocol: US left limited joint or other nonvascular extremity structure. Real-time ultrasound with image documentation. Exam focused on the area of clinical interest. COMPARISON: No relevant prior studies available. FINDINGS: Soft tissues: No loculated collections. Other findings: Muscle fibers are grossly unremarkable. The Achilles tendon as visualized appears intact. No images to suggest disruption. Achilles attachment to the posterior calcaneus is not visualized. US/US soft tissue/extremity [id number] IMPRESSION: 1. Muscle fibers are grossly unremarkable. The Achilles tendon as visualized appears intact. No images to suggest disruption. 2. Further evaluation with MRI is offered for consideration as clinically indicated.
== END 2024-11-30 13:57 | disposition home or self-care (01) ==
PROVIDERS: PCP Family Medicine; Visit Provider Family Medicine
DX: S86.012A Strain of left Achilles tendon, initial encounter (principal); X58.XXXA Exposure to other specified factors, initial encounter
CPT/HCPCS: 76882

== ENCOUNTER 2024-12-08 10:02 | Outpatient (CLI) | payer BC, MEDICAID, SELFPAY ==
--- NOTE | 2024-12-08 10:20 | MM_ITS ---
WS: [id number] BILATERAL 3D TOMOSYNTHESIS DIGITAL SCREENING MAMMOGRAPHY WITH CAD CLINICAL INFORMATION: screening HISTORY: Screening mammogram. No current complaints. COMPARISON: 2023 TECHNIQUE: Bilateral CC and MLO views. FINDINGS: Scattered fibroglandular densities bilaterally. No suspicious focal mass, asymmetry, calcifications, or architectural distortion. No evidence of malignancy. Incidental punctate calcifications. MM/MM [facility] tomosynthesis [id number] IMPRESSION: DENSITY: There are scattered areas of fibroglandular density. BI-RADS: 2 - Benign. FOLLOW UP: 1 Year Follow-up Recommend return to annual screening mammography.
== END 2024-12-08 10:03 | disposition home or self-care (01) ==
LOC: RAD 10:04
PROVIDERS: PCP Family Medicine; Visit Provider Family Medicine
DX: Z12.31 Encounter for screening mammogram for malignant neoplasm of breast (principal); R92.323 Mammographic fibroglandular density, bilateral breasts; R92.1 Mammographic calcification found on diagnostic imaging of breast
CPT/HCPCS: 77063; 77067